=== PATIENT | male | born 1955 | race African-American/Black ===

== ENCOUNTER 2022-09-21 03:52 | Emergency (ER) | payer MEDICARE, MEDICAID ==
[~2022-09-21] VITALS: Ht 177.8 cm; Wt 80.0 kg
[2022-09-21 03:56] VITALS: BP 118/68
[2022-09-21] MEDS ORDERED: KETOROLAC 60MG/2ML VIAL IM ONE (04:30)
[2022-09-21] MEDS ORDERED: CYCLOBENZAPRINE 10MG TABLET PO ONE (04:30)
[2022-09-21] MEDS ORDERED: HYDR-4001 MT (05:48)
[2022-09-21] MEDS ORDERED: CYCL5TAB MT (05:48)
== END 2022-09-21 06:00 | disposition home or self-care (01) ==
LOC: ER 03:52
DX: S16.1XXA Strain of muscle, fascia and tendon at neck level, initial encounter (principal); X58.XXXA Exposure to other specified factors, initial encounter; Y93.89 Activity, other specified; Y92.89 Other specified places as the place of occurrence of the external cause; Y99.8 Other external cause status; J45.909 Unspecified asthma, uncomplicated; Z98.890 Other specified postprocedural states
CPT/HCPCS: 96372; 99283; J1885